=== PATIENT | male | born 1940 | race Caucasian/White ===

== ENCOUNTER 2022-07-05 12:44 | Emergency (ER) | payer MEDICARE ==
[2022-07-05 12:59] VITALS: O2SAT 100
--- NOTE | 2022-07-05 13:37 | ERPHSYRPT ---
- History of Present Illness Time Seen by Provider: 07/05/22 13:33 Source: patient Exam Limitations: no limitations Patient Subjective Stated Complaint: Pt states "I fell last night and my left arm and ribs hurt." Triage Nursing Assessment: PT presented alert and oriented X3, skin pwd. Pt ambulates with an upright slow gait. Pt favoring his left arm and has tender ribs on the left side. Physician History: Patient is an 82-year-old male presents emergency department for evaluation of pain to his left humerus and left rib. Patient was at home ambulating to the restroom and fell. Patient states his legs became somewhat wobbly. We advised patient obtain a work-up however patient did declined a work-up patient states he only wants x-rays. Patient fell towards his left side. Patient's left elbow tucked into his left rib. Patient complains of left humerus and left rib pain. No BHT or LOC. No neck pain. Cervical spine cleared clinically. Female friend at bedside. They voiced no other complaints or concerns at this time. Patient states the falls not associated with any neuro cardiovascular symptomology. No chest pain or shortness of breath. No nausea vomiting or diaphoresis. No numbness tingling or weakness. Patient declined pain medication. Portions of this note were created with voice recognition technology. There may be grammatical, spelling, punctuation or sound alike errors Timing/Duration: yesterday Severity: mild Modifying Factors: Improves With: movement (Movement and palpation reproduces pain at the left humerus and left rib.) Associated Symptoms: denies symptoms Allergies/Adverse Reactions: oxcarbazepine Allergy (Intermediate, Verified 07/05/22 13:02) trazodone Allergy (Intermediate, Verified 07/05/22 13:02) acetaminophen [From Vicodin] Allergy (Unknown, Verified 07/05/22 13:02) amitriptyline Allergy (Unknown, Verified 07/05/22 13:02) codeine Allergy (Unknown, Verified 07/05/22 13:02) cyclobenzaprine [From Flexeril] Allergy (Unknown, Verified 07/05/22 13:02) hydrochlorothiazide Allergy (Unknown, Verified 07/05/22 13:02) hydrocodone [From Vicodin] Allergy (Unknown, Verified 07/05/22 13:02) levothyroxine Allergy (Unknown, Verified 07/05/22 13:02) simvastatin [From Zocor] Allergy (Unknown, Verified 07/05/22 13:02) Iclzpil-SGO-IjK Reductase Inhibitor Allergy (Unknown, Verified 07/05/22 13:02) Sulfa (Sulfonamide Antibiotics) Allergy (Unknown, Verified 07/05/22 13:02) sulfamethoxazole [From Bactrim] Allergy (Unknown, Verified 07/05/22 13:02) trimethoprim [From Bactrim] Allergy (Unknown, Verified 07/05/22 13:02) Home Medications: Amlodipine Besylate 5 mg [Norvasc 5 mg] 5 mg PO DAILY 07/05/22 [History] Clopidogrel Bisulfate [Clopidogrel] 75 mg PO DAILY 07/05/22 [History] Gabapentin 100 mg PO DAILY 07/05/22 [History] Isosorbide Mononitrate [Isosorbide Mononitrate ER] 30 mg PO DAILY 07/05/22 [History] Lorazepam 1 mg [Ativan 1 MG] 1 mg PO DAILY 07/05/22 [History] OXcarbazepine [Trileptal] 150 mg PO DAILY 07/05/22 [History] Omeprazole 40 mg PO DAILY 07/05/22 [History] Tamsulosin HCl 0.4 mg [Flomax 0.4 MG] 0.4 mg PO DAILY 07/05/22 [History] Hx Tetanus, Diphtheria Vaccination/Date Given: No Hx Influenza Vaccination/Date Given: Yes Hx Pneumococcal Vaccination/Date Given: Yes Immunizations Up to Date: Yes Travel Risk - International Travel Have you traveled outside of the country in past 3 weeks: No - Coronavirus Screening Are you exhibiting any of the following symptoms?: No Close contact with a COVID-19 positive Pt in past 14-21 Days: No - Vaccine Status Have you recieved a Covid-19 vaccination: No - Review of Systems Constitutional: No Symptoms, No Fever, No Chills Eyes: No Symptoms Ears, Nose, & Throat: No Symptoms Respiratory: No Symptoms, No Cough, No Dyspnea Cardiac: No Symptoms, No Chest Pain, No Edema, No Syncope Abdominal/Gastrointestinal: No Symptoms, No Abdominal Pain, No Nausea, No Vomiting, No Diarrhea Genitourinary Symptoms: No Symptoms, No Dysuria Musculoskeletal: No Symptoms, No Back Pain, No Neck Pain Skin: No Symptoms, No Rash Neurological: No Symptoms, No Dizziness, No Focal Weakness, No Sensory Changes Psychological: No Symptoms Endocrine: No Symptoms Hematologic/Lymphatic: No Symptoms Immunological/Allergic: No Symptoms All Other Systems: Reviewed and Negative - Past Medical History Pertinent Past Medical History: Yes Cardiac History: High Cholesterol, Hypertension - Past Surgical History Past Surgical History: Yes Other Surgical History: heart cath. valve replacement - Social History Smoking Status: Never smoker Exposure to second hand smoke: No Drug Use: none Patient Lives Alone: Yes - Nursing Vital Signs Nursing Vital Signs: Initial Vital Signs Temperature 98.4 F 07/05/22 12:53 Pulse Rate 57 L 07/05/22 12:53 Respiratory Rate 20 07/05/22 12:53 Blood Pressure 182/74 07/05/22 12:53 O2 Sat by Pulse Oximetry 100 07/05/22 12:53 Pain Scale Pain Intensity 0 - Physical Exam General Appearance: no apparent distress, alert Eye Exam: PERRL/EOMI, eyes nml inspection Ears, Nose, Throat Exam: normal ENT inspection, TMs normal, pharynx normal, moist mucous membranes Neck Exam: normal inspection, non-tender, supple, full range of motion Respiratory Exam: normal breath sounds, lungs clear, airway intact, No respiratory distress Cardiovascular Exam: regular rate/rhythm, normal heart sounds, normal peripheral pulses, other (Tenderness to palpation left ribs 3,4,5,6) Gastrointestinal/Abdomen Exam: soft, normal bowel sounds, No tenderness, No mass Back Exam: normal inspection, normal range of motion, No CVA tenderness, No vertebral tenderness Extremity Exam: normal inspection, normal range of motion, pelvis stable, other (Tenderness to palpation of the left midshaft humerus.) Neurologic Exam: alert, oriented x 3, cooperative, normal mood/affect, nml cerebellar function, nml station & gait, sensation nml, No motor deficits Skin Exam: normal color, warm, dry, No rash Lymphatic Exam: No adenopathy SpO2 Interpretation: normal SpO2: 100 O2 Delivery: Room Air - Course Nursing assessment & vital signs reviewed: Yes - Radiology Exams Ribs X-ray Interpretation: Teleradiologist Report (Left sixth rib fracture nondisplaced, aortic iliac calcifications osteopenia shoulder arthritis) Ordered Tests: Active Orders 24 hr Category Date Time Status [facility] Stat Exams 07/05/22 13:11 Completed RIBS UNILATERAL Stat Exams 07/05/22 13:11 Completed - Progress Progress: improved Progress Note: Patient is a 82-year-old male presents to our ED for evaluation of pain to his left rib and left humerus. Patient fell at home. Patient states the fall was due to "wobbly legs". However patient refused a work-up. Patient only wanted x-rays. X-ray left humerus was negative for fracture dislocation. X-ray left ribs shows a nondisplaced left rib fracture. Patient's complaint is acute. Complexity patient's complaint is moderate. Patient declined pain medication. Patient was given and instructed how to use an incentive spirometer to maintain natural motion at the lung segment just deep to the rib fracture. Patient agrees follow-up primary care doctor within 48 hours for reevaluation. Level of service provided was moderate. Complexity the problem addressed was low. Co mplex of data reviewed and analyzed was normal. Risk of complication and or risk of morbidity/mortality patient management is low. No critical care time. Patient served as an independent historian. Time spent in discharge is approximately 5 minutes. Patient voices no other complaints or concerns at this time Portions of this note were created with voice recognition technology. There may be grammatical, spelling, punctuation or sound alike errors 07/05/22 13:54 Counseled pt/family regarding: diagnosis, need for follow-up, rad results Medical Desision Making - Diagnostic Testing Diagnostic Testing: Diagnostic tests were ordered,analyzed, and reviewed by me and used in my medical decision making for this patient. Radiologic studies (if ordered) were read by me initially then discussed with the radiologist . - Departure Departure Disposition: Home Clinical Impression: Fall, Rib fracture, Left humerus contusion Condition: Stable Critical Care Time: No Referrals: FÁTIMA CONTRERAS [Primary Care Provider] - Follow up/PCP as directed Additional Instructions: Discharge/Care Plan [id number] was seen on 07/05/22 in the Emergency Room. The patient was counseled regarding Diagnosis,Lab results, Imaging studies, need for follow up and when to return to the Emergency Room. Prescriptions given: Discharge Note I have spoken with the patient and/or caregivers. I have explained the patient's condition, diagnosis and treatment plan based on the information available to me at this time. I have answered the patient's and/or caregiver's questions and addressed any concerns. The patient and/or caregivers have as good understanding of the patient's diagnosis, condition and treatment plan as can be expected at this point. The vital signs have been stable. The patient's condition is stable and appropriate for discharge from the emergency department. The patient will pursue further outpatient evaluation with the primary care physician or other designated or consulting physician as outlined in the d ischarge instructions. The patient and/or caregivers are agreeable to this plan of care and follow-up instructions have been explained in detail. The patient and/or caregivers have received these instruction. The patient/and or caregivers are aware that any significant change in condition or worsening of symptoms should prompt an immediate return to this or the closest emergency department or call 911.
--- NOTE | 2022-07-05 13:43 | XRAY ---
Indication: Pain following fall. Comparison: None 2 view left humerus demonstrates osteopenia and mild glenohumeral degenerative changes. No other bony, articular, or soft tissue abnormalities.
--- NOTE | 2022-07-05 13:43 | XRAY ---
Indication: Pain following fall. Comparison: None 2 view left ribs demonstrates nondisplaced fracture lateral arc 6 rib without hemothorax/pneumothorax. Elsewhere osteopenia, mild shoulder degenerative arthropathy, mild/moderate multilevel degenerative spondylosis, cardiac valve replacement surgery, and scattered arteriosclerotic calcifications.
[2022-07-05 14:00] VITALS: BP 177/67; PULSE 60
== END 2022-07-05 14:08 | disposition home or self-care (01) ==
LOC: ED 12:44
DX: S40.022A Contusion of left upper arm, initial encounter (principal); S22.32XA Fracture of one rib, left side, initial encounter for closed fracture; W19.XXXA Unspecified fall, initial encounter; Y93.01 Activity, walking, marching and hiking; E78.5 Hyperlipidemia, unspecified; I10 Essential (primary) hypertension; Z79.02 Long term (current) use of antithrombotics/antiplatelets; Z79.899 Other long term (current) drug therapy; Z28.310 Unvaccinated for COVID-19
CPT/HCPCS: 71100; 73060; 99282

== ENCOUNTER 2023-03-01 08:13 | Emergency (ER) | payer MEDICARE ==
[2023-03-01] MEDS ORDERED: Sodium Chloride 0.9% 1000 ML 1,000 ML IV SCH (08:45)
[2023-03-01] MEDS ORDERED: Sodium Chloride 0.9% 1000 ML 1,000 ML ONE (08:55)
[2023-03-01 08:59] LABS: Absolute Neutrophil Ct (ANC) 5.33 x10^3/uL (1.4-6.9); BASOPHIL % 0.6 % (0.0-0.4); Basophil (Absolute #) 0.04 x10^3/uL (0-0.4); Eosinophil % 2.2 % (0.00-5.0); Eosinophil (Absolute #) 0.15 x10^3/uL (0-0.5); Hematocrit 25.3 % (42-50); Hemoglobin 8.3 g/dL (12.5-18.0); IMMATURE GRAN # 0.06 x10^3u/L (0.00-0.03); IMMATURE GRAN % 0.9 % (0.00-0.4); Lymphocyte (Absolute #) 0.58 x10^3/uL (1.0-4.6); Lymphocytes % 8.6 % (24.0-44.0); Mean Cell Volume 91.3 fL (78-100); Mean Corpuscular Hgb Concent. 32.8 g/dL (32-36); Mean Platelet Volume 8.7 fL (7.5-11.0); Monocyte (Absolute #) 0.57 x10^3/uL (0.0-1.3); Monocytes % 8.5 % (0.0-12.0); Neutrophil % 79.2 % (36.0-66.0); Platelet Count 163 x10^3/uL (150-450); Red Blood Count 2.77 x10^6/uL (4.1-5.6); Red Cell Distribution Width 17.5 % (11.5-14.0); White Blood Count 6.7 x10^3/uL (4.0-10.5)
--- NOTE | 2023-03-01 09:04 | ERPHSYRPT ---
- History of Present Illness Time Seen by Provider: 03/01/23 09:02 Source: patient Exam Limitations: no limitations Physician History: Patient is an 82-year-old white male who presents with a complaint of weakness and severe constipation impaction. He has been up most of the night trying to go to the bathroom he took a soapsuds enema at home without success is also dr ank a bottle and a half of mag citrate. He has just been out of the hospital for a week following a right carotid endarterectomy during that hospital stay he did require 1 unit of blood. Timing/Duration: today Severity: moderate Modifying Factors: Improves With: acetaminophen Associated Symptoms: abdominal pain, weakness Allergies/Adverse Reactions: oxcarbazepine Allergy (Intermediate, Verified 03/01/23 08:47) trazodone Allergy (Intermediate, Verified 03/01/23 08:47) acetaminophen [From Vicodin] Allergy (Unknown, Verified 03/01/23 08:47) amitriptyline Allergy (Unknown, Verified 03/01/23 08:47) codeine Allergy (Unknown, Verified 03/01/23 08:47) cyclobenzaprine [From Flexeril] Allergy (Unknown, Verified 03/01/23 08:47) hydrochlorothiazide Allergy (Unknown, Verified 03/01/23 08:47) hydrocodone [From Vicodin] Allergy (Unknown, Verified 03/01/23 08:47) levothyroxine Allergy (Unknown, Verified 03/01/23 08:47) simvastatin [From Zocor] Allergy (Unknown, Verified 03/01/23 08:47) Scovlfc-IIC-DuI Reductase Inhibitor Allergy (Unknown, Verified 03/01/23 08:47) Sulfa (Sulfonamide Antibiotics) Allergy (Unknown, Verified 03/01/23 08:47) sulfamethoxazole [From Bactrim] Allergy (Unknown, Verified 03/01/23 08:47) trimethoprim [From Bactrim] Allergy (Unknown, Verified 03/01/23 08:47) Home Medications: Amlodipine Besylate 5 mg [Norvasc 5 mg] 5 mg PO DAILY 07/05/22 [History] Clopidogrel Bisulfate [Clopidogrel] 75 mg PO DAILY 07/05/22 [History] Gabapentin 100 mg PO DAILY 07/05/22 [History] Isosorbide Mononitrate [Isosorbide Mononitrate ER] 30 mg PO DAILY 07/05/22 [History] Lorazepam 1 mg [Ativan 1 MG] 1 mg PO DAILY 07/05/22 [History] OXcarbazepine [Trileptal] 150 mg PO DAILY 07/05/22 [History] Omeprazole 40 mg PO DAILY 07/05/22 [History] Tamsulosin HCl 0.4 mg [Flomax 0.4 MG] 0.4 mg PO DAILY 07/05/22 [History] Hx Tetanus, Diphtheria Vaccination/Date Given: No Hx Influenza Vaccination/Date Given: Yes Hx Pneumococcal Vaccination/Date Given: Yes Travel Risk - Vaccine Status Have you recieved a Covid-19 vaccination: No - Review of Systems Constitutional: Weakness, No Fever, No Chills Eyes: No Symptoms Ears, Nose, & Throat: No Symptoms Respiratory: No Cough, No Dyspnea Cardiac: No Chest Pain, No Edema, No Syncope Abdominal/Gastrointestinal: Constipation, No Abdominal Pain, No Nausea, No Vomiting, No Diarrhea Genitourinary Symptoms: No Dysuria Musculoskeletal: No Back Pain, No Neck Pain Skin: No Rash Neurological: No Dizziness, No Focal Weakness, No Sensory Changes Psychological: No Symptoms Endocrine: No Symptoms All Other Systems: Reviewed and Negative - Past Medical History Pertinent Past Medical History: Yes Cardiac History: High Cholesterol, Hypertension - Past Surgical History Past Surgical History: Yes Other Surgical History: heart cath. valve replacement - Social History Smoking Status: Never smoker Exposure to second hand smoke: No Drug Use: none Patient Lives Alone: Yes - Nursing Vital Signs Nursing Vital Signs: Initial Vital Signs Temperature 97.2 F 03/01/23 08:49 Pulse Rate 68 03/01/23 08:49 Respiratory Rate 18 03/01/23 08:49 Blood Pressure 138/71 03/01/23 08:49 O2 Sat by Pulse Oximetry 99 03/01/23 08:49 Pain Scale Pain Intensity 0 - Physical Exam General Appearance: mild distress, alert Eye Exam: PERRL/EOMI, eyes nml inspection Ears, Nose, Throat Exam: normal ENT inspection, TMs normal, pharynx normal, moist mucous membranes Neck Exam: normal inspection, non-tender, supple, full range of motion Respiratory Exam: normal breath sounds, lungs clear, No respiratory distress Cardiovascular Exam: regular rate/rhythm, normal heart sounds, normal peripheral pulses Gastrointestinal/Abdomen Exam: soft, normal bowel sounds, No tenderness, No mass Back Exam: normal inspection, normal range of motion, No CVA tenderness, No vertebral tenderness Extremity Exam: normal inspection, normal range of motion, pelvis stable Neurologic Exam: alert, oriented x 3, cooperative, normal mood/affect, nml cerebellar function, nml station & gait, sensation nml, No motor deficits Skin Exam: normal color, warm, dry, No rash Lymphatic Exam: No adenopathy - Course Nursing assessment & vital signs reviewed: Yes - Radiology Exams Abdomen X-ray Interpretation: Reviewed by me (Fecal stasis and impaction) Ordered Tests: Active Orders 24 hr Category Date Time Status Enema STAT Care 03/01/23 09:41 Active IV Insertion STAT Care 03/01/23 08:40 Active OBSTR/ACUTE ABDOMEN SERIES Stat Exams 03/01/23 08:40 Completed CBC W DIFF Stat Lab 03/01/23 08:55 Completed CMP Stat Lab 03/01/23 08:55 Completed Lactic Acid Stat Lab 03/01/23 09:05 Completed Medication Summary Generic Name Dose Route Start Last Admin Trade Name Freq PRN Reason Stop Dose Admin Sodium Chloride 1,000 mls @ 200 mls/hr 03/01/23 08:45 03/01/23 08:57 Sodium Chloride 0.9% 1000 Ml IV 03/31/23 08:44 200 mls/hr .Q5H [id number] Administration Lab/Rad Data: Laboratory Result Diagrams 03/01/23 08:55 03/01/23 08:55 Laboratory Results 03/01/23 03/01/23 03/01/23 Range/Units 09:05 08:55 08:55 WBC 6.7 (4.0-10.5) x10^3/uL RBC 2.77 L (4.1-5.6) x10^6/uL Hgb 8.3 L (12.5-18.0) g/dL Hct 25.3 L (42-50) % MCV 91.3 (78-100) fL MCH 30.0 (26-32) pg MCHC 32.8 (32-36) g/dL RDW 17.5 H (11.5-14.0) % Plt Count 163 (150-450) x10^3/uL MPV 8.7 (7.5-11.0) fL Gran % 79.2 H (36.0-66.0) % Immature Gran % (Auto) 0.9 H (0.00-0.4) % Nucleat RBC Rel Count 0.0 (0.00-0.1) % Eos # (Auto) 0.15 (0-0.5) x10^3/uL Immature Gran # (Auto) 0.06 H (0.00-0.03) x10^3u/L Absolute Lymphs (auto) 0.58 L (1.0-4.6) x10^3/uL Absolute Monos (auto) 0.57 (0.0-1.3) x10^3/uL Absolute Nucleated RBC 0.00 (0.00-0.01) x10^3u/L Lymphocytes % 8.6 L (24.0-44.0) % Monocytes % 8.5 (0.0-12.0) % Eosinophils % 2.2 (0.00-5.0) % Basophils % 0.6 (0.0-0.4) % Absolute Granulocytes 5.33 (1.4-6.9) x10^3/uL Basophils # 0.04 (0-0.4) x10^3/uL Sodium 138 (137-145) mmol/L Potassium 4.9 (3.5-5.1) mmol/L Chloride 104 (98-107) mmol/L Carbon Dioxide 28 (22-30) mmol/L Anion Gap 11.7 (5-15) MEQ/L BUN 22 H (9-20) mg/dL Creatinine 1.61 H (0.66-1.25) mg/dL Estimated GFR 44.1 ML/MIN Glucose 111 H (74-106) mg/dL Lactic Acid 0.8 (0.4-2.0) Calcium 9.4 (8.4-10.2) mg/dL Total Bilirubin 0.80 (0.2-1.3) mg/dL AST 35 (17-59) U/L ALT 15 (0-50) U/L Alkaline Phosphatase 74 (38-126) U/L Serum Total Protein 6.7 (6.3-8.2) g/dL Albumin 4.1 (3.5-5.0) g/dL Slides for Path Review YES - Progress Progress: improved Medical Desision Making - Diagnostic Testing Diagnostic test were ordered, analyzed, and reviewed by me: Yes Radiological Interpretation: Reviewed by me - Risk of complications Minimal Risk: Minimal risk of morbidity - Departure Departure Disposition: Home Clinical Impression: Constipation Condition: Stable Critical Care Time: No Referrals: FÁTIMA CONTRERAS [NON-STAFF PHY W/O PRIVILEGES] - Follow up/PCP as directed Instructions: Constipation, Adult (DC)
[2023-03-01 09:09] VITALS: RESP 18; TEMP 97.2
[2023-03-01 09:17] LABS: ALBUMIN 4.1 g/dL (3.5-5.0); ANION GAP 11.7 MEQ/L (5-15); BILIRUBIN,TOTAL 0.8 mg/dL (0.2-1.3); Calcium 9.4 mg/dL (8.4-10.2); Creatinine 1 1.61 mg/dL (0.66-1.25); EST GLOMERULAR FILTRATION RATE 44.1 ML/MIN; Potassium 4.9 mmol/L (3.5-5.1); Total Protein 6.7 g/dL (6.3-8.2)
--- NOTE | 2023-03-01 09:29 | XRAY ---
Indication: Pain. Comparison: None 2 view abdomen demonstrates moderate diffuse fecal stasis greatest in left hemicolon and rectum. Mild air distended large bowel and lesser degree small bowel loops with fluid leveling, ileus versus obstruction. No free air. Frontal chest demonstrates left costophrenic angle subsegmental atelectasis/scarring and right hemidiaphragm elevation. Heart not enlarged with cardiac valve replacement and CABG. Osseous structures intact with osteopenia and mild/moderate degenerative changes throughout the thoracolumbar spine. Impression: 1. Fecal stasis with rectal impaction. Distended small and large bowel loops with fluid leveling, ileus versus obstruction possibly due to fecal stasis. 2. Nonacute one view chest with chronic features.
[2023-03-01 11:46] VITALS: BP 142/68; PULSE 62; O2SAT 98
[2023-03-01 11:53] LABS: Slide Review 1 YES
== END 2023-03-01 12:05 | disposition home or self-care (01) ==
LOC: ED 08:13
DX: K59.00 Constipation, unspecified (principal); R53.1 Weakness; E78.5 Hyperlipidemia, unspecified; I10 Essential (primary) hypertension; Z79.02 Long term (current) use of antithrombotics/antiplatelets; Z79.899 Other long term (current) drug therapy; Z28.310 Unvaccinated for COVID-19
CPT/HCPCS: 36000; 36415; 74022; 80053; 83605; 85025; 96360; 96361; 99284

== ENCOUNTER 2024-03-11 09:51 | Emergency (ER) | payer MEDICARE ==
[2024-03-11 10:32] VITALS: TEMP 97.7; O2SAT 100
--- NOTE | 2024-03-11 11:32 | ERPHSYRPT ---
- History of Present Illness Time Seen by Provider: 03/11/24 11:30 Source: patient Exam Limitations: no limitations Patient Subjective Stated Complaint: C/O constipation from iron pills. Denies any pain, N/V. Patient is unsure when his last BM was. Triage Nursing Assessment: Patient ambulated back to ER without difficulites. He is alert and oriented. No SOB. BERMUDEZ WNL. Denies pain to abdomen. Physician History: 83-year-old male presents to our ED for evaluation of constipation. Patient states he has not had a bowel movement in at least 3 days. He states he is regular daily. Patient attributes constipation to iron supplements that he is currently on. Patient is otherwise asymptomatic. No abdominal pain. No nausea no vomiting no rectal bleeding. No fever. Symptoms are mild in intensity. No specific worsening improving factors. Patient otherwise feels well he voices no other complaints or concerns at this time. Portions of this note were created with voice recognition technology. There may be grammatical, spelling, punctuation or sound alike errors Timing/Duration: day(s) Severity: moderate Modifying Factors: Improves With: nothing Associated Symptoms: denies symptoms Allergies/Adverse Reactions: oxcarbazepine Allergy (Intermediate, Verified 03/01/23 08:47) trazodone Allergy (Intermediate, Verified 03/01/23 08:47) acetaminophen [From Vicodin] Allergy (Unknown, Verified 03/11/24 10:19) amitriptyline Allergy (Unknown, Verified 03/11/24 10:19) codeine Allergy (Unknown, Verified 03/11/24 10:19) cyclobenzaprine [From Flexeril] Allergy (Unknown, Verified 03/11/24 10:19) hydrochlorothiazide Allergy (Unknown, Verified 03/11/24 10:19) hydrocodone [From Vicodin] Allergy (Unknown, Verified 03/11/24 10:19) levothyroxine Allergy (Unknown, Verified 03/11/24 10:19) simvastatin [From Zocor] Allergy (Unknown, Verified 03/11/24 10:19) [id number] Reductase Inhibitor Allergy (Unknown, Verified 03/11/24 10:19) Sulfa (Sulfonamide Antibiotics) Allergy (Unknown, Verified 03/11/24 10:19) sulfamethoxazole [From Bactrim] Allergy (Unknown, Verified 03/11/24 10:19) trimethoprim [From Bactrim] Allergy (Unknown, Verified 03/11/24 10:19) Home Medications: Amlodipine Besylate 5 mg [Norvasc 5 mg] 5 mg PO DAILY 07/05/22 [History] Clopidogrel Bisulfate [Clopidogrel] 75 mg PO DAILY 07/05/22 [History] Gabapentin 100 mg PO DAILY 07/05/22 [History] Isosorbide Mononitrate [Isosorbide Mononitrate ER] 30 mg PO DAILY 07/05/22 [History] Lorazepam 1 mg [Ativan 1 MG] 1 mg PO DAILY 07/05/22 [History] OXcarbazepine [Trileptal] 150 mg PO DAILY 07/05/22 [History] Omeprazole 40 mg PO DAILY 07/05/22 [History] Tamsulosin HCl 0.4 mg [Flomax 0.4 MG] 0.4 mg PO DAILY 07/05/22 [History] Hx Tetanus, Diphtheria Vaccination/Date Given: Yes Hx Influenza Vaccination/Date Given: Yes Hx Pneumococcal Vaccination/Date Given: Yes Immunizations Up to Date: Yes Travel Risk - International Travel Have you traveled outside of the country in past 3 weeks: No - Emerging Infectious Disease Are you exhibiting symptoms associated with any current EIDs: No - Review of Systems Constitutional: No Symptoms, No Fever, No Chills Eyes: No Symptoms Ears, Nose, & Throat: No Symptoms Respiratory: No Symptoms, No Cough, No Dyspnea Cardiac: No Symptoms, No Chest Pain, No Edema, No Syncope Abdominal/Gastrointestinal: No Symptoms, No Abdominal Pain, No Nausea, No Vomiting, No Diarrhea Genitourinary Symptoms: No Symptoms, No Dysuria Musculoskeletal: No Symptoms, No Back Pain, No Neck Pain Skin: No Symptoms, No Rash Neurological: No Symptoms, No Dizziness, No Focal Weakness, No Sensory Changes Psychological: No Symptoms Endocrine: No Symptoms Hematologic/Lymphatic: No Symptoms Immunological/Allergic: No Symptoms All Other Systems: Reviewed and Negative - Past Medical History Pertinent Past Medical History: Yes Cardiac History: High Cholesterol, Hypertension Male Reproductive Disorders: Prostate Problems Other Medical History: Anemia, iron infusions - Past Surgical History Past Surgical History: Yes Cardiac: Cardiac Catheterization, Valve Replacement Other Surgical History: heart cath. valve replacement - Social History Smoking Status: Never smoker Exposure to second hand smoke: No Drug Use: none Patient Lives Alone: Yes - Social Determinants of Health Will the patient participate in the screening: Declined to provide - Nursing Vital Signs Nursing Vital Signs: Initial Vital Signs Temperature 97.7 F 03/11/24 10:20 Pulse Rate 60 03/11/24 10:20 Respiratory Rate 18 03/11/24 10:20 Blood Pressure 178/73 03/11/24 10:20 O2 Sat by Pulse Oximetry 100 03/11/24 10:20 Pain Scale Pain Intensity 0 - Physical Exam General Appearance: no apparent distress, alert Eye Exam: PERRL/EOMI, eyes nml inspection Ears, Nose, Throat Exam: normal ENT inspection, TMs normal, pharynx normal, moist mucous membranes Neck Exam: normal inspection, non-tender, supple, full range of motion Respiratory Exam: normal breath sounds, lungs clear, No respiratory distress Cardiovascular Exam: regular rate/rhythm, normal heart sounds, normal peripheral pulses Gastrointestinal/Abdomen Exam: soft, normal bowel sounds, No tenderness, No mass Back Exam: normal inspection, normal range of motion, No CVA tenderness, No vertebral tenderness Extremity Exam: normal inspection, normal range of motion, pelvis stable Neurologic Exam: alert, oriented x 3, cooperative, normal mood/affect, sensation nml, No motor deficits Skin Exam: normal color, warm, dry, No rash Lymphatic Exam: No adenopathy SpO2 Interpretation: normal SpO2: 100 O2 Delivery: Room Air - Course Nursing assessment & vital signs reviewed: Yes - CT Exams Abdomen/Pelvis CT Interpretation: Tele-radiologist Report (Diffuse fecal stasis with rectal impaction. Chronic findings please see report for details) Ordered Tests: Active Orders 24 hr Category Date Time Status ABDOMEN AND PELVIS W/0 CONTRAS [CT] Stat Exams 03/11/24 10:40 Completed - Progress Progress: improved Progress Note: 83-year-old male presents to emergency department for evaluation of constipation x [address] reveals diffuse fecal stasis with fecal rectal impaction. Chronic findings observed as well. Patient received an enema. Patient had a large bowel movement. Symptoms resolved. Patient ready for discharge. He voices no other complaints or concerns at this time. Portions of this note were created with voice recognition technology. There may be grammatical, spelling, punctuation or sound alike errors Complexity of problem addressed is moderate acute complicated. No critical care time. Complex of data reviewed and analyzed is moderate. Test ordered test reviewed results analyzed and correlated clinically with history and physical exam. Risk of complication and or risk of morbidity/mortality of patient leah sanz is low. Vital stable. Time spent to discharge patient approximately 15 minutes. Plan of care established for shared decision making. No social determinants of health present to impede follow-up. Portions of this note were created with voice recognition technology. There may be grammatical, spelling, punctuation or sound alike errors 03/11/24 14:13 Counseled pt/family regarding: diagnosis, need for follow-up, rad results - Departure Departure Disposition: Home Clinical Impression: Fecal impaction in rectum, Fecal stasis, Gallstone, Fall, Vascular calcification Condition: Stable Critical Care Time: No Referrals: ZHOU DASILVA MD [Primary Care Provider] - Follow up/PCP as directed Additional Instructions: Discharge/Care Plan NUBIA SCHWARTZ was seen on 03/11/24 in the Emergency Room. The patient was counseled regarding Diagnosis,Lab results, Imaging studies, need for follow up and when to return to the Emergency Room. Prescriptions given: Discharge Note I have spoken with the patient and/or caregivers. I have explained the patient's condition, diagnosis and treatment plan based on the information available to me at this time. I have answered the patient's and/or caregiver's questions and addressed any concerns. The patient and/or caregivers have as good understanding of the patient's diagnosis, condition and treatment plan as can be expected at this point. The vital signs have been stable. The patient's condition is stable and appropriate for discharge from the emergency department. The patient will pursue further outpatient evaluation with the primary care physician or other designated or consulting physician as outlined in the disc harge instructions. The patient and/or caregivers are agreeable to this plan of care and follow-up instructions have been explained in detail. The patient and/or caregivers have received these instruction. The patient/and or caregivers are aware that any significant change in condition or worsening of symptoms should prompt an immediate return to this or the closest emergency department or call 911.
[2024-03-11 12:14] VITALS: BP 192/86; PULSE 66; RESP 17
--- NOTE | 2024-03-11 12:16 | XRAY ---
Indication: Abdomen pain 1 month. Constipation. Multiple contiguous images obtained through the abdomen and pelvis without contrast. Comparison: None Lung bases demonstrates pulmonary emphysema and mild bibasilar dependent atelectasis. Heart not enlarged with extensive scattered coronary calcifications, mitral valve calcifications, and aortic valve replacement. Noncontrasted stomach and bowel loops appear nonobstructed. There is mild/moderate diffuse fecal debris greatest in ascending and transverse colon. Also mild rectal fecal impaction. Appendectomy and prostatectomy reported. Incidental 1 cm gallstone. No free fluid/air. Remaining liver, gallbladder, pancreas, spleen, adrenal glands, kidneys, ureters, and bladder are unremarkable for noncontrast exam. Mild scattered aortoiliac calcifications without AAA. Osseous structures intact with osteopenia, mild/moderate degenerative changes throughout thoracolumbar spine, and minimal dextroscoliosis centered at L3, Impression: 1. Diffuse fecal stasis with rectal fecal impaction. 2. Chronic findings including pulmonary emphysema, cardiac valvular calcifications, arteriosclerotic disease, gallstone, and chronic bony findings.
== END 2024-03-11 14:18 | disposition home or self-care (01) ==
LOC: ED 09:51
DX: K56.41 Fecal impaction (principal); K59.89 Other specified functional intestinal disorders; K80.20 Calculus of gallbladder without cholecystitis without obstruction; I34.81 Nonrheumatic mitral (valve) annulus calcification; I25.10 Atherosclerotic heart disease of native coronary artery without angina pectoris; E78.5 Hyperlipidemia, unspecified; I10 Essential (primary) hypertension; Z79.02 Long term (current) use of antithrombotics/antiplatelets; Z79.899 Other long term (current) drug therapy; Z91.81 History of falling
CPT/HCPCS: 74176; 99283

== ENCOUNTER 2024-03-21 11:53 | Emergency (ER) | payer MEDICARE ==
--- NOTE | 2024-03-21 12:02 | ERPHSYRPT ---
- History of Present Illness Time Seen by Provider: 03/21/24 12:01 Historian: patient, family Exam Limitations: no limitations Physician History: pt reports repeated blockages of bowels in the past few months with stool - no other w/u other than KUB. Minimal pain - mild tenderness lower abd. No palp mass. Normal mental status Discussed risk/benefit of testing/Tx with CBC, lactate, CMP, CT abd and enema and pt wishes to proceed so these are ordered. results discussed. Timing/Duration: week(s), intermittent Activities at Onset: none Quality: dullness, fullness Abdominal Pain Onset Location: generalized abdomen Pain Radiation: no radiation Severity of Pain-Max: mild Severity of Pain-Current: mild Modifying Factors: Improves With: nothing Associated Symptoms: denies symptoms Previous symptoms: same symptoms as today, recently seen, recently treated Allergies/Adverse Reactions: oxcarbazepine Allergy (Intermediate, Verified 03/21/24 12:09) trazodone Allergy (Intermediate, Verified 03/21/24 12:09) acetaminophen [From Vicodin] Allergy (Unknown, Verified 03/21/24 12:09) amitriptyline Allergy (Unknown, Verified 03/21/24 12:09) codeine Allergy (Unknown, Verified 03/21/24 12:09) cyclobenzaprine [From Flexeril] Allergy (Unknown, Verified 03/21/24 12:09) hydrochlorothiazide Allergy (Unknown, Verified 03/21/24 12:09) hydrocodone [From Vicodin] Allergy (Unknown, Verified 03/21/24 12:09) levothyroxine Allergy (Unknown, Verified 03/21/24 12:09) simvastatin [From Zocor] Allergy (Unknown, Verified 03/21/24 12:09) [id number] Reductase Inhibitor Allergy (Unknown, Verified 03/21/24 12:09) Sulfa (Sulfonamide Antibiotics) Allergy (Unknown, Verified 03/21/24 12:09) sulfamethoxazole [From Bactrim] Allergy (Unknown, Verified 03/21/24 12:09) trimethoprim [From Bactrim] Allergy (Unknown, Verified 03/21/24 12:09) Home Medications: Amlodipine Besylate 5 mg [Norvasc 5 mg] 5 mg PO DAILY 07/05/22 [History] Clopidogrel Bisulfate [Clopidogrel] 75 mg PO DAILY 07/05/22 [History] Gabapentin 100 mg PO DAILY 07/05/22 [History] Isosorbide Mononitrate [Isosorbide Mononitrate ER] 30 mg PO DAILY 07/05/22 [History] Lorazepam 1 mg [Ativan 1 MG] 1 mg PO DAILY 07/05/22 [History] OXcarbazepine [Trileptal] 150 mg PO DAILY 07/05/22 [History] Omeprazole 40 mg PO DAILY 07/05/22 [History] Tamsulosin HCl 0.4 mg [Flomax 0.4 MG] 0.4 mg PO DAILY 07/05/22 [History] Hx Tetanus, Diphtheria Vaccination/Date Given: Yes Hx Influenza Vaccination/Date Given: Yes Hx Pneumococcal Vaccination/Date Given: Yes Travel Risk - Emerging Infectious Disease Are you exhibiting symptoms associated with any current EIDs: No - Review of Systems Constitutional: No Fever, No Chills Eyes: No Symptoms Ears, Nose, & Throat: No Symptoms Respiratory: No Cough, No Dyspnea Cardiac: No Chest Pain, No Edema, No Syncope Abdominal/Gastrointestinal: Abdominal Pain, Constipation, No Nausea, No Vomiting, No Diarrhea Genitourinary Symptoms: No Dysuria Musculoskeletal: No Back Pain, No Neck Pain Skin: No Symptoms, No Rash Neurological: No Dizziness, No Focal Weakness, No Sensory Changes Psychological: No Symptoms Endocrine: No Symptoms Hematologic/Lymphatic: No Symptoms Immunological/Allergic: No Symptoms All Other Systems: Reviewed and Negative - Past Medical History Pertinent Past Medical History: Yes Cardiac History: High Cholesterol, Hypertension Male Reproductive Disorders: Prostate Problems Other Medical History: Anemia, iron infusions - Past Surgical History Past Surgical History: Yes Cardiac: Cardiac Catheterization, Valve Replacement Other Surgical History: heart cath. valve replacement - Social History Smoking Status: Never smoker Exposure to second hand smoke: No Drug Use: none Patient Lives Alone: Yes - Social Determinants of Health Will the patient participate in the screening: Declined to provide - Nursing Vital Signs Nursing Vital Signs: Initial Vital Signs Temperature 97.2 F 03/21/24 12:03 Pulse Rate 62 03/21/24 12:03 Respiratory Rate 16 03/21/24 12:03 Blood Pressure 157/61 03/21/24 12:03 O2 Sat by Pulse Oximetry 100 03/21/24 12:03 Pain Scale Pain Intensity 0 - Physical Exam General Appearance: no apparent distress, alert Eye Exam: PERRL/EOMI, eyes nml inspection Ears, Nose, Throat Exam: normal ENT inspection, pharynx normal, moist mucous membranes Neck Exam: normal inspection, non-tender, supple, full range of motion Respiratory Exam: normal breath sounds, lungs clear, No respiratory distress Cardiovascular Exam: regular rate/rhythm, normal heart sounds Gastrointestinal/Abdomen Exam: soft, tenderness, No distention, No mass, No guarding, No pulsatile mass, No rebound Rectal Exam: normal rectal tone, other (no further impaction noted after enema) Back Exam: normal inspection, normal range of motion, No CVA tenderness, No vertebral tenderness Extremity Exam: normal inspection, normal range of motion, pelvis stable Neurologic Exam: alert, oriented x 3, cooperative, normal mood/affect, nml cerebellar function, sensation nml, No motor deficits Skin Exam: normal color, warm, dry - Course Nursing assessment & vital signs reviewed: Yes - CT Exams Abdomen/Pelvis CT Interpretation: Tele-radiologist Report, Other (mild fecal impaction again without obstruction gallstone without cholecystitis. ) Ordered Tests: Active Orders 24 hr Category Date Time Status Enema STAT Care 03/21/24 12:06 Active ABDOMEN AND PELVIS W/0 CONTRAS [CT] Stat Exams 03/21/24 12:06 Completed CBC W DIFF Stat Lab 03/21/24 12:40 Completed CMP Stat Lab 03/21/24 12:40 Completed Lactic Acid Stat Lab 03/21/24 12:06 Completed Lab/Rad Data: Laboratory Result Diagrams 03/21/24 12:40 03/21/24 12:40 Laboratory Results 03/21/24 03/21/24 03/21/24 Range/Units 12:40 12:40 12:06 WBC 6.1 (4.23-9.07) x10^3/uL RBC 2.82 L (4.63-6.08) x10^6/uL Hgb 9.1 L (13.7-17.5) g/dL Hct 27.4 L (40.1-51.0) % MCV 97.2 H (79.0-92.2) fL MCH 32.3 H (25.7-32.2) pg MCHC 33.2 (32.3-36.5) g/dL RDW 15.2 H (11.6-14.4) % Plt Count 138 L (163-337) x10^3/uL MPV 8.7 L (9.4-12.4) fL Gran % 78.5 H (34.0-67.9) % Immature Gran % (Auto) 0.3 (0.001-0.429) % Nucleat RBC Rel Count 0.0 (0.00-0.2) % Eos # (Auto) 0.15 (0.04-0.54) x10^3/uL Immature Gran # (Auto) 0.02 (0.001-0.031) x10^3u/L Absolute Lymphs (auto) 0.64 L (1.32-3.57) x10^3/uL Absolute Monos (auto) 0.44 (0.30-0.82) x10^3/uL Absolute Nucleated RBC 0.00 (0.00-0.012) x10^3u/L Lymphocytes % 10.6 L (21.8-53.1) % Monocytes % 7.3 (5.3-12.2) % Eosinophils % 2.5 (0.8-7.0) % Basophils % 0.8 (0.2-1.2) % Absolute Granulocytes 4.76 (1.78-5.38) x10^3/uL Basophils # 0.05 (0.01-0.08) x10^3/uL Sodium 134 L (135-145) mmol/L Potassium 4.9 (3.5-5.1) mmol/L Chloride 105 (98-107) mmol/L Carbon Dioxide 24 (22-30) mmol/L Anion Gap 9.7 (5-15) MEQ/L BUN 40 H (9-20) mg/dL Creatinine 1.47 H (0.66-1.25) mg/dL Estimated GFR 47.6 ML/MIN Glucose 107 H (74-106) mg/dL Lactic Acid 0.6 (0.4-2.0) Calcium 9.1 (8.4-10.2) mg/dL Total Bilirubin 0.60 (0.2-1.3) mg/dL AST 35 (17-59) U/L ALT 19 (0-50) U/L Alkaline Phosphatase 58 (38-126) U/L Serum Total Protein 6.2 L (6.3-8.2) g/dL Albumin 3.5 (3.5-5.0) g/dL - Progress Progress: improved, re-examined Progress Note: 03/21/24 14:52 looks like CRF and a little more dehydrated today with chronic low hgb also. CT not changed from last week. Pt had good result after enema and feels better now with symptoms resolved. 03/21/24 15:35 DIscussed with pt aqnd friend that there still could be undetected pathology evolving of a serious nature even with negative CT and stable lab ( they are aware of CRF and low HGB), and they prefer dc TO OUTPT F/U RATHER THAN FURTHER TESTING OBS AT THIS TIME IN HOSP/er. THey have the capacity to make this choice. 03/21/24 15:38 Counseled pt/family regarding: lab results, diagnosis, need for follow-up, rad results Medical Desision Making - Independent Historian Additional History obtained from: Family - Discussion of managment Reviewed:: Test results, Need for additional workup Agreed on:: Treatment plan, need for follow-up - Risk of complications The pt has a mod risk of morbidity or mortality based on: Need for prescription drug management The pt has a high risk of morbidity or mortality based on: Decision regarding hospitilization or escalation of hosp level of care - Departure Departure Disposition: Home Clinical Impression: Constipation, Fecal impaction, CRF (chronic renal failure), Low hemoglobin Condition: Good Critical Care Time: No Referrals: ZHOU DASILVA MD [Primary Care Provider] - Follow up/PCP as directed Instructions: Constipation, Adult (DC), Chronic kidney disease, High Blood Pressure ED Additional Instructions: It is important to follow-up with your DrAlec this week for your blood pressure, kidneys and low hemoglobin and to try different regimen to help constipation. Drink plenty of fluids and high fiber diet. Return meantime if there are any symptoms of concern , pain, vomiting , fever, dizziness , bloating or other as there could be serious conditions developing undetected as well.
[2024-03-21 12:14] VITALS: TEMP 97.2
--- NOTE | 2024-03-21 12:47 | XRAY ---
Indication: Constipation. "Blockage." Multiple contiguous axial images obtained through the abdomen and pelvis without contrast. Comparison: March 11, 2024 Lung bases again demonstrates pulmonary emphysema and minimal bilateral dependent atelectasis. Heart not enlarged again with extensive coronary calcifications, mitral microcalcifications, and aortic valve replacement. Noncontrasted stomach and bowel loops appear nonobstructed. There remains mild/moderate diffuse fecal debris again greatest in ascending and transverse colon with mild rectal fecal impaction. Stable 1 cm gallstone, appendectomy, and prostatectomy. No free fluid/air. Remaining liver, gallbladder, pancreas, spleen, adrenal glands, kidneys, ureters, and bladder are unremarkable for noncontrast exam. Stable mild aortoiliac calcifications without AAA. Osseous structures intact again with osteopenia, mild/moderate degenerative changes throughout spine, and minimal dextroscoliosis. Impression: No change compared to ER CT abdomen/pelvis one week ago. Again diffuse fecal stasis with rectal fecal impaction, pulmonary emphysema, cardiac valvular calcifications, arteriosclerotic disease, gallstone, and chronic bony findings. No new/acute findings on this noncontrast exam.
[2024-03-21 12:52] LABS: Absolute Neutrophil Ct (ANC) 4.76 x10^3/uL (1.78-5.38); BASOPHIL % 0.8 % (0.2-1.2); Basophil (Absolute #) 0.05 x10^3/uL (0.01-0.08); Eosinophil % 2.5 % (0.8-7.0); Eosinophil (Absolute #) 0.15 x10^3/uL (0.04-0.54); Hematocrit 27.4 % (40.1-51.0); Hemoglobin 9.1 g/dL (13.7-17.5); IMMATURE GRAN # 0.02 x10^3u/L (0.001-0.031); IMMATURE GRAN % 0.3 % (0.001-0.429); Lymphocyte (Absolute #) 0.64 x10^3/uL (1.32-3.57); Lymphocytes % 10.6 % (21.8-53.1); Mean Cell Volume 97.2 fL (79.0-92.2); Mean Corpuscular Hemoglobin 32.3 pg (25.7-32.2); Mean Corpuscular Hgb Concent. 33.2 g/dL (32.3-36.5); Mean Platelet Volume 8.7 fL (9.4-12.4); Monocyte (Absolute #) 0.44 x10^3/uL (0.30-0.82); Monocytes % 7.3 % (5.3-12.2); Neutrophil % 78.5 % (34.0-67.9); Platelet Count 138 x10^3/uL (163-337); Red Blood Count 2.82 x10^6/uL (4.63-6.08); Red Cell Distribution Width 15.2 % (11.6-14.4); White Blood Count 6.1 x10^3/uL (4.23-9.07)
[2024-03-21 12:59] LABS: ALBUMIN 3.5 g/dL (3.5-5.0); ANION GAP 9.7 MEQ/L (5-15); BILIRUBIN,TOTAL 0.6 mg/dL (0.2-1.3); Calcium 9.1 mg/dL (8.4-10.2); Creatinine 1 1.47 mg/dL (0.66-1.25); EST GLOMERULAR FILTRATION RATE 47.6 ML/MIN; Potassium 4.9 mmol/L (3.5-5.1); Total Protein 6.2 g/dL (6.3-8.2)
[2024-03-21 13:06] VITALS: O2SAT 100
[2024-03-21 14:25] VITALS: PULSE 55; RESP 18
[2024-03-21 15:34] VITALS: BP 172/95
== END 2024-03-21 16:09 | disposition home or self-care (01) ==
LOC: ED 11:53
DX: K59.00 Constipation, unspecified (principal); I12.9 Hypertensive chronic kidney disease with stage 1 through stage 4 chronic kidney disease, or unspecified chronic kidney disease; N18.9 Chronic kidney disease, unspecified; D64.9 Anemia, unspecified; R10.9 Unspecified abdominal pain; E78.5 Hyperlipidemia, unspecified; Z79.02 Long term (current) use of antithrombotics/antiplatelets; Z79.899 Other long term (current) drug therapy
CPT/HCPCS: 36415; 74176; 80053; 83605; 85025; 99283; 99284

== ENCOUNTER 2024-04-05 13:13 | Emergency (ER) | payer MEDICARE ==
[2024-04-05 13:36] VITALS: TEMP 97; O2SAT 100
--- NOTE | 2024-04-05 14:26 | ERPHSYRPT ---
- History of Present Illness Time Seen by Provider: 04/05/24 13:14 Historian: patient Exam Limitations: no limitations Patient Subjective Stated Complaint: Pt reports it has been approx one week since he had a bowel movement, since it has been smears on the toilet paper. Triage Nursing Assessment: Pt alert and oriented x3. Respirations easy/nonlabored. Skin w/p/d. Ambulated to ED cot with unsteady gait, assist x1. Active bowel sounds in all four quads. Abdomen flat/nontender/soft. Physician History: 83-year-old with history of hypertension, coronary artery disease, GERD presented in the ER with complaints of constipation. Patient reported his last bowel movement was almost 1 week ago. Patient reports he has urge to go but cannot and it feels like solid stool stuck down there. Denies any bleeding. No history of hemorrhoids. No abdominal pain nausea or vomiting. Has tried [id number] laxatives with no significant relief. Allergies/Adverse Reactions: oxcarbazepine Allergy (Intermediate, Verified 04/05/24 13:30) trazodone Allergy (Intermediate, Verified 04/05/24 13:30) acetaminophen [From Vicodin] Allergy (Unknown, Verified 04/05/24 13:30) amitriptyline Allergy (Unknown, Verified 04/05/24 13:30) codeine Allergy (Unknown, Verified 04/05/24 13:30) cyclobenzaprine [From Flexeril] Allergy (Unknown, Verified 04/05/24 13:30) hydrochlorothiazide Allergy (Unknown, Verified 04/05/24 13:30) hydrocodone [From Vicodin] Allergy (Unknown, Verified 04/05/24 13:30) levothyroxine Allergy (Unknown, Verified 04/05/24 13:30) simvastatin [From Zocor] Allergy (Unknown, Verified 04/05/24 13:30) Uoxuygo-EXI-KnK Reductase Inhibitor Allergy (Unknown, Verified 04/05/24 13:30) Sulfa (Sulfonamide Antibiotics) Allergy (Unknown, Verified 04/05/24 13:30) sulfamethoxazole [From Bactrim] Allergy (Unknown, Verified 04/05/24 13:30) trimethoprim [From Bactrim] Allergy (Unknown, Verified 04/05/24 13:30) Home Medications: Amlodipine Besylate 5 mg [Norvasc 5 mg] 5 mg PO DAILY 07/05/22 [History] Clopidogrel Bisulfate [Clopidogrel] 75 mg PO DAILY 07/05/22 [History] Gabapentin 100 mg PO DAILY 07/05/22 [History] Isosorbide Mononitrate [Isosorbide Mononitrate ER] 30 mg PO DAILY 07/05/22 [History] Lorazepam 1 mg [Ativan 1 MG] 1 mg PO DAILY 07/05/22 [History] OXcarbazepine [Trileptal] 150 mg PO DAILY 07/05/22 [History] Omeprazole 40 mg PO DAILY 07/05/22 [History] Tamsulosin HCl 0.4 mg [Flomax 0.4 MG] 0.4 mg PO DAILY 07/05/22 [History] Hx Tetanus, Diphtheria Vaccination/Date Given: Yes Hx Influenza Vaccination/Date Given: Yes Hx Pneumococcal Vaccination/Date Given: Yes Travel Risk - International Travel Have you traveled outside of the country in past 3 weeks: No - Emerging Infectious Disease Are you exhibiting symptoms associated with any current EIDs: No - Review of Systems Constitutional: No Symptoms Ears, Nose, & Throat: No Symptoms Respiratory: No Symptoms Cardiac: No Symptoms Abdominal/Gastrointestinal: Constipation Genitourinary Symptoms: No Symptoms Musculoskeletal: Arthralgias, Back Pain Skin: No Symptoms Neurological: No Symptoms Endocrine: No Symptoms Hematologic/Lymphatic: No Symptoms - Past Medical History Pertinent Past Medical History: Yes Cardiac History: High Cholesterol, Hypertension Male Reproductive Disorders: Prostate Problems Other Medical History: Anemia, iron infusions - Past Surgical History Past Surgical History: Yes Cardiac: Cardiac Catheterization, Valve Replacement Gastrointestinal: Appendectomy Other Surgical History: heart cath. valve replacement - Social History Smoking Status: Never smoker Exposure to second hand smoke: No Drug Use: none Patient Lives Alone: Yes - Social Determinants of Health Will the patient participate in the screening: Declined to provide - Nursing Vital Signs Nursing Vital Signs: Initial Vital Signs Temperature 97 F 04/05/24 13:21 Pulse Rate 66 04/05/24 13:21 Respiratory Rate 16 04/05/24 13:21 Blood Pressure 150/72 04/05/24 13:21 O2 Sat by Pulse Oximetry 100 04/05/24 13:21 Pain Scale Pain Intensity 0 - Physical Exam General Appearance: no apparent distress Neck Exam: normal inspection Respiratory Exam: normal breath sounds, lungs clear Cardiovascular Exam: regular rate/rhythm, normal heart sounds Gastrointestinal/Abdomen Exam: soft, normal bowel sounds, No tenderness Back Exam: normal range of motion Extremity Exam: normal inspection, normal range of motion Neurologic Exam: alert, oriented x 3, cooperative Skin Exam: normal color SpO2 Interpretation: normal SpO2: 100 O2 Delivery: Room Air Ordered Tests: Active Orders 24 hr Category Date Time Status KUB Stat Exams 04/05/24 13:52 Completed - Progress Progress: improved Progress Note: 04/05/24 18:05 83-year-old is evaluated in the ER for constipation. Patient has soft to formed stool on rectal exam. I have obtained KUB which is consistent with constipation and nonobstructive pattern. Given enema with small bowel movement. Patient later on decided to go home and will try over there. I recommended continue with MiraLAX and stool softener outpatient follow-up. Discussed signs symptoms of worsening needing return to ER which he seems understanding. Stable for discharge. Counseled pt/family regarding: diagnosis, need for follow-up, rad results - Departure Departure Disposition: Home Clinical Impression: Constipation Condition: Stable Critical Care Time: No Referrals: ZHOU DASILVA MD [Primary Care Provider] - Follow up with PCP 1 day Instructions: Constipation, Adult (DC) Additional Instructions: take daily Miralax and stool softner, increase fiber in the diet. Follow-up with primary care for reevaluation. Return to ER for worsening of constipation or if having abdominal pain nausea vomiting etc.
--- NOTE | 2024-04-05 14:54 | XRAY ---
CLINICAL HISTORY: constipation COMPARISON: None. TECHNIQUE: X-ray abdomen (KUB) AP supine single projection. FINDINGS: Non specific bowel gas pattern is noed. No dilated bowel loop is noted. Fecal loaded larged bowel noted in the transverse colon,decending colon. sigmoid and rectum. Phleboliths noted in the pelvis. Degenerative changes are noted in the lumbar spine. IMPRESSION: Fecal loaded large bowel noted in the transverse colon,decending colon. sigmoid and rectum suggesting Constipation. Need clinical correlation. Electronically Signed by: Chapin Yepez MD. (04/05/2024 14:50:13 EST)
[2024-04-05 17:15] VITALS: RESP 16
[2024-04-05 18:17] VITALS: BP 173/82; PULSE 71
== END 2024-04-05 18:19 | disposition home or self-care (01) ==
LOC: ED 13:13
DX: K59.00 Constipation, unspecified (principal)
CPT/HCPCS: 74018; 99283